=== PATIENT | female | born 1970 | race Caucasian/White ===

== ENCOUNTER → 2017-06-03 | Outpatient (CLI) | payer BC, OTHER ==
[~2017-06-03] MED LIST: CARISOPRODOL 3350 MG PO; CELEXA40 MG PO; CLONAZEPAM; IBUPROFEN 800800 M1 PO; MEDROL DOSPAK21 TA1 PO; NORCO 5-325 TA1 EACH PO; PERCOCET; PERCOCET 5-3251 EACH PO; PHENERGAN 25 MG25 MG PO; PYRIDIUM200 MG PO; SKELAXIN 800 M800 M1 PO; SYMBICORT; XANAX 0.5 MG0.5 MG PO; ZOFRAN4 MG PO
== END ==
LOC: RAD 10:10
DX: N63 Unspecified lump in breast (principal)

== ENCOUNTER → 2017-06-04 | Outpatient (CLI) | payer BC | LOC: ULTRA 10:06 | DX: N63 Unspecified lump in breast (principal) ==

== ENCOUNTER 2018-12-06 18:07 | Emergency (ER) | payer OTHER ==
[~2018-12-06] VITALS: Ht 162.6 cm; Wt 86.2 kg
[~2018-12-06 18:07] MED LIST changes: +CLEOCIN HCL150 MG PO
[2018-12-06 19:31] LABS: URINE BILIRUBIN NEGATIVE (Negative); URINE BLOOD 1+ (Negative); URINE CLARITY CLEAR; URINE COLOR YELLOW; URINE GLUCOSE-RANDOM* NEGATIVE (Negative); URINE KETONES NEGATIVE (Negative); URINE LEUKOCYTES-REFLEX NEGATIVE (Negative); URINE NITRITE-REFLEX NEGATIVE (Negative); URINE PROTEIN (DIPSTICK) NEGATIVE (Negative); URINE SPECIFIC GRAVITY >= 1.030 (1.005-1.035); URINE UROBILINOGEN 0.2 E.U./dl (0.2-1.0)
[2018-12-06 19:38] LABS: CASTS None Seen /LPF (None Seen); SQUAMOUS 4-10 Moderate /LPF (0-3); URINE WBC-REFLEX 0-5 Rare /HPF (0-5)
[2018-12-06 19:39] LABS: AMORPHOUS URATES Many /LPF (None Seen); BACTERIA-REFLEX 1-9 Few /HPF (None Seen); URINE RBC 3-10 Few /HPF (0-2)
[2018-12-06] MEDS ORDERED: IBUPROFEN 800800 M1 PO (19:39)
[2018-12-06 19:47] LABS: ABSOLUTE NEUTROPHILS 4.4 thou/uL (1.4-8.2); BASOPHILS 1.5 % (0.0-2.0); EOSINOPHILS 2.4 % (0.0-3.0); HEMOGLOBIN 14.4 gm/dL (12.0-15.0); LYMPHOCYTES 42.8 % (24.0-44.0); MCH 30.9 pg (26.0-34.0); MCHC 33.5 g/dL (28.0-37.0); MCV 92.3 fL (80.0-100.0); MONOCYTES 3.2 % (1.0-8.0); PLATELET COUNT 282 thou/uL (150-400); POLYS 50.1 % (36.0-66.0); RBC 4.66 mil/uL (4.20-5.00); WBC 8.7 thou/uL (4.0-11.0)
[2018-12-06 19:56] LABS: CALCIUM 9.8 mg/dL (8.5-10.1); CREATININE 0.9 mg/dL (0.6-1.0); POTASSIUM 3.8 mmol/L (3.5-5.1)
[2018-12-06 20:04] LABS: ALBUMIN 4.2 g/dL (3.4-5.0); TOTAL BILIRUBIN 0.4 mg/dL (<0.1-1.0)
[2018-12-06] MEDS ORDERED: MOBIC7.5 MG PO (20:57)
[2018-12-06] MEDS ORDERED: NORCO 5-325 TA1 EACH PO (20:57)
[2018-12-06] MEDS ORDERED: PROTONIX40 M1 PO (20:57)
[2018-12-06 21:10] VITALS: BP 114/82
== END 2018-12-06 21:12 | disposition home or self-care (01) ==
LOC: ER 18:07
PROVIDERS: Nurse Practitioner Family
DX: K29.70 Gastritis, unspecified, without bleeding (principal); G89.29 Other chronic pain; M06.9 Rheumatoid arthritis, unspecified; Z98.890 Other specified postprocedural states; F17.210 Nicotine dependence, cigarettes, uncomplicated; Z88.0 Allergy status to penicillin; Z88.5 Allergy status to narcotic agent